=== PATIENT | female | born 1955 | race Caucasian/White ===

== ENCOUNTER 2019-09-11 11:34 | Emergency (ER) | payer OTHER, SELFPAY ==
--- NOTE | ~2019-09-11 | XR_ITS ---
EXAMINATION: XR hand LT min 3V EXAM DATE: 09/11/2019 12:18 INDICATION: Initial encounter following injury, with pain of the left hand. Injury 10 days ago with persistent pain. TECHNIQUE: Left hand frontal, lateral and oblique projections obtained and reviewed. There is no silviano or study for comparison. FINDINGS: Left metacarpal bones are unremarkable. There are no acute fractures or dislocations ident ified. There is no subcutaneous gas. The soft tissue is unremarkable. Carpal surgical changes. IMPRESSION: No acute osseous findings. Reviewed, dictated and finalized at location B. OR [employer] IMPRESSION: No acute osseous findings.
[2019-09-11 11:49] VITALS: BP 143/92; PULSE 78; RESP 16; TEMP 36.6; O2SAT 100
--- NOTE | 2019-09-11 11:56 | ED.GENADULT ---
HPI - General Adult General Chief complaint: Extremity Injury, Upper Stated complaint: Left Hand Injury Time Seen by Provider: 09/11/19 11:56 Source: patient and RN notes reviewed Mode of arrival: ambulatory Limitations: no limitations History of Present Illness HPI narrative: 64-year-old female presents with left dorsal hand pain and swelling for 10 days. Heather says she fell on 09/01/19 after missing a step with a tray in her hand causing pain to LT hand. Sought treatment in [place] after fall occurred at an Urgent Care received a splint to LT hand and discharge instructions concerning RICE per Heather. She says she has been using with little relief. No radiation of pain. No loss of mobility. Exacerbating factors consist of movement and palpation. The relieving factors is immobility. Dominant hand is the RIGHT HAND. No suspected abuse. Heather is postmenopausal. Some parts of this dictation were generated by voice recognition software and may contain typographical and/or grammatical inaccuracies. Related Data Home Medications Medication Instructions Recorded Confirmed Vitamins 09/11/19 carvedilol 09/11/19 triamterene-hydrochlorothiazid tablet 09/11/19 Allergies Allergy/AdvReac Type Severity Reaction Status Date / Time No Known Allergies Allergy Unknown Unverified 03/11/19 19:18 Review of Systems Review of Systems: Narrative: CONSTITUTIONAL: Denies fever, chills, sweats. EYES: Denies visual changes, redness, discharge. ENT: Denies rhinorrhea, congestion, sore throat, otalgia. CARDIOVASCULAR: Denies chest pain, palpitations, edema. RESPIRATORY: Denies dyspnea, wheezing, cough. GASTROINTESTINAL: Denies abdominal pain, nausea, vomiting, diarrhea. GENITOURINARY: Denies dysuria, hematuria, abnormal discharge. SKIN: Denies rash or itching. MUSCULOSKELETAL: Denies acute back pain or myalgia. Complains of Left dorsal hand swelling and pain. NEUROLOGIC: Denies numbness or focal weakness. PSYCHIATRIC: Denies anxiety or depression. All other systems reviewed and negative. [facility] Past Medical History Medical History (Updated 09/12/19 @ 00:00 by Logan Friend) Acid reflux disease with ulcer Carpal tunnel syndrome of left wrist Hypertension Surgical History Surgical History (Updated 09/11/19 @ 12:10 by ARIA Guillory) History of adenoidectomy History of carpal tunnel surgery of left wrist joint repair of LT thumb History of hysterectomy History of Benjie fundoplication History of tonsillectomy Family History Family History (Updated 09/11/19 @ 12:11 by ARIA Guillory) Mother Diabetes mellitus Hypertension Social History Social History (Updated 09/11/19 @ 12:11 by ARIA Guillory) Smoking status: Never smoker Second hand tobacco smoke exposure: No Alcohol intake: current Alcohol use details: Occasionally Substance use: never Living arrangements: with family Occupation/Education: retired Gender identity (if verbalized by the patient): Female Comments At time of signature, agree with nurse past medical, surgical, social, and family history. There is no relevant family history pertinent to the presenting complaint. Exam Narrative: Exam Narrative: GENERAL: This is a well-nourished, well-developed patient, in no apparent distress. HEAD: normocephalic, atraumatic. EYES: PERRL. Sclera clear/white. Vision is grossly intact. NECK: Neck supple, non-tender without lymphadenopathy, masses or thyromegaly. CARDIOVASCULAR: Regular rate and rhythm without murmurs, gallops, or rubs. RESPIRATORY: Clear to auscultation. Breath sounds equal bilaterally. No wheezes, rales, or rhonchi. GASTROINTESTINAL: Abdomen soft, non-tender, nondistended. Bowel sounds are active. No hepato-splenomegaly, or palpable masses. No guarding. SKIN: warm, intact with no suspicious lesions or rash, good texture and turgor. NEURO: awake, alert, and oriented to
== END 2019-09-11 12:38 | disposition home or self-care (01) ==
PROVIDERS: Emergency Provider Nurse Practitioner Family
DX: S63.92XA Sprain of unspecified part of left wrist and hand, initial encounter (principal); X58.XXXA Exposure to other specified factors, initial encounter; K21.9 Gastro-esophageal reflux disease without esophagitis; I10 Essential (primary) hypertension
CPT/HCPCS: 73130; 99213; G0463

== ENCOUNTER 2025-06-26 11:00 | Emergency (ER) | payer OTHER, SELFPAY ==
--- NOTE | ~2025-06-26 | XR_ITS ---
EXAMINATION: XR hand LT min 3V, 06/26/2025 11:50 ORACLE MANAGER HISTORY: Cut to dorsal aspect of palm, base of forth finger COMPARISON: No comparisons available. Findings: No acute fracture or malalignment. Sequelae of previous surgery noted in the first metacarpal carpal joint with moderate degenerative changes noted. Soft tissues unremarkable. Impression: No acute fracture or malalignment. Reviewed, dictated and finalized at location P. LE MANAGER Impression: No acute fracture or malalignment.
[2025-06-26 11:02] VITALS: BP 185/91; PULSE 83; RESP 18; TEMP 36.3; O2SAT 98
--- OUTSIDE RECORDS SUMMARY | 2025-06-26 11:44 | XMS_ITS | Clinical Summary ---
Author Organization [facility] Address [address] [place] [address] Care Team Providers Care Buffet Attendant Name Role Phone Casey Rodrigues MD Primary Care Provider + Rogelio Garcia MD Unavailable Cam Carmen MD Unavailable [phone] Oneida Cobos NP Unavailable [phone] Dominique Mcnamara PhD Unavailable [phone] Herson Howell MD Unavailable Padmaja Juarez MD Unavailable [phone] Lili Fortune MD Unavailable Allergies Active Allergy Reactions Criticality Noted Date Comments Adhesive Itching,Swelling,Re dness High 02/23/2022 surgical glue Adhesive Tape-Silicones Rash High 03/29/2022 Per patient -- had severe reaction to Dermabond Amlodipine Edema,Swelling Medium 06/30/2020 Chlorhexidine Rash High 03/29/2022 Severe rash after parathyroid surgery Egg Stomach upset Low 02/09/2022 Duck Eggs Egg Derived Stomach upset Low 02/09/2022 Duck Eggs Losartan Headache Low 08/19/2020 Tissue Adhesive Rash High 03/29/2022 Per patient -- had severe reaction to Dermabond Medications cholecalciferol (VITAMIN D-3) 5,000 unit tabletIndications:P revention of Vitamin D Deficiency Take 1 tablet (5,000 Units total) by mouth nightly Active ondansetron (Zofran) 4 mg tabletIndications:I rritable bowel syndrome, unspecified type,Gastroesophage al reflux disease with esophagitis, unspecified whether hemorrhage Take 1 tablet (4 mg total) by mouth every 8 (eight) hours as needed for nausea or vomiting 60 tablet 3 09/14/19 23 Active hyoscyamine (LEVSIN) 0.125 mg tabletIndications:I rritable bowel syndrome, unspecified type,Gastroesophage al reflux disease with esophagitis, unspecified whether hemorrhage TAKE 1 TABLET(0.125 MG) BY MOUTH EVERY 6 HOURS NEEDED FOR CRAMPING OR DIARRHEA 90 tablet 5 09/14/19 23 Active magnesium gluconate (MAGONATE) 500 mg (27 mg elemental) tabletIndications:h ypomagnesemia 1 tablet (500 mg total) nightly Active docusate sodium (COLACE) 100 mg capsuleIndications: constipation Take 1 capsule (100 mg total) by mouth 2 (two) times a day as needed for constipation Active ascorbic acid (vitamin C) 1,000 mg tablet Take 1 tablet (1,000 mg total) by mouth daily Active estradioL (Estrace) 0.01 % (0.1 mg/gram) vaginal creamIndications:Va ginal atrophy Insert one gram vaginally 2 times per week (such as Monday/ ) 42.5 g 1 12/14/19 24 Active lisinopriL (PRINIVIL,ZESTRIL) 40 mg tabletIndications:P rimary hypertension TAKE 1 TABLET(40 MG) BY MOUTH EVERY NIGHT 90 tablet 3 11/19/[address] (PROTONIX) 40 mg EC tabletIndications:S ymptomatic Gastroesophageal Reflux Disease Take 1 tablet (40 mg total) by mouth daily 90 tablet 3 03/07/20 25 026 Active hydroCHLOROthiazide 12.5 mg tablet TAKE 1 TABLET(12.5 MG) BY MOUTH DAILY 90 tablet 2 04/04/20 25 Active famotidine (PEPCID) 20 mg tablet Take 1 tablet (20 mg total) by mouth 2 (two) times a day as needed for heartburn 025 Disconti nued(Ot er) Active Problems Problem Noted Date Diagnosed Date Paraesophageal hernia with obstruction but no ga ngrene 04/21/2025 Hiatal hernia 03/12/2025 Lung nodules 03/12/2025 Hyperglycemia 03/12/2025 PLMD (periodic limb movement disorder) Aortic atherosclerosis 03/12/2025 Class 1 obesity due to exces s calories with serious comorbidity and body mass index (BMI) of 32.0 to 32.9 in adult 02/13/2025 Cervical disc disorder with radiculopathy 2024 Assessment & Plan (10/31/2024 12:22 PM CDT): Progressive & refractory on chronic cervical radiculopathy since early 20s Prior reported moderate to severe C-spine DDDx per 2010 & 2013 imaging (per documentation w/o available imaging) Update x-ray today with low threshold to proceed with MRI if warranted Arrange for formal PT towards cervical traction yielding some possible benefit in refractory sxs, secondary cervical/trap strain Optimized supportives mgmt, limited ability w/ NSAIDs given hx fundoplication GIB risk Discussed tx options including gabapentin trial (declined), amenable to trial cyclobenzapine QHS prn, lidocaine patches w/ APAP & conservative therapies Referrals to PMR & pain mgmgt (whomever able accommodate sooner) discuss injections Interim update in 1-2 months or w/ progressive sxs Other osteoporosis without current pathological fracture 09/14/2023 Urinary frequency 06/01/2023 Assessment & Plan (06/01/2023 12:56 PM CDT): -She is adequately emptying her bladder on PVR check today. -Management options were discussed for urgency and frequency including expectant management, conservative management (pelvic floor physical therapy and behavioral modification, medical management, and surgical management (Interstim sacral neuromodulation, intravesicular botulinum toxin injection). -Urine culture is being sent today to rule out a UTI as a possible cause of her symptoms. -I reviewed the behavior modification recommendation; handout provided -Also discussed that her vaginal atrophy may be contributing to her urinary symptoms (see below). -Night time urinary symptoms can be improved with decreasing fluid intake 2-3 hours prior to bedtime and by elevating legs during the afternoon for improved diuresis prior to sleep. Night time urinary symptoms are also often associated with sleep disorders, including sleep apnea. -Her pelvic floor dysfunction likely plays a role in her symptoms, and will be addressed with pelvic floor PT -She is not interested in medications at this time. -if symptoms not significantly improved at follow up I would recommend urodynamics Pelvic floor dysfunction in female 05/31/2023 Assessment & Plan (06/01/2023 12:55 PM CDT): On examination, we elicited Mild pain to palpation of the pelvic floor muscles. Patient was also found to have pelvic floor muscle incoordination and pelvic floor weakness. We discussed the role that her pelvic floor muscle dysfunction is likely playing in her urinary symptoms and bowel symptoms. Management options for levator ani/obturator pain/spasm were discussed including pelvic floor physical therapy. A prescription for PFPT was given. Hallux valgus of left foot 09/09/2022 Overview (09/09/2022): Added automatically from request for surgery [id number] Onychocryptosis 09/09/2022 Overview (09/09/2022): Added automatically from request for surgery [id number] Leg mass, left 09/28/2021 Multiple nevi 04/22/2021 Headache 08/19/2020 Vertigo 08/19/2020 Rectal bleeding 01/06/2019 Shingles 01/06/2019 Polycythemia 10/30/2017 Overview (11/05/2018): seen by heme 10/15. low dose asa recommended. 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 planned therapeutic phlebotomy as needed Abnormal electrocardiography 03/28/2017 Overview (11/05/2018): 03/16 - nsr, q waves in leads iii/avf, ?old inf mi. stress echo 04/16 - small lv cavity with hyperdynamic lvf, dd, mild tr, no ischemia Obstructive sleep apnea syndrome 03/27/2017 Ventricular premature beats 03/27/2017 Incomplete emptying of bladder 12/22/2016 Fibromyalgia 12/13/2016 Hemorrhoids 12/13/2016 Irritable bowel syndrome wit h both constipation and diarrhea 12/13/2016 Insomnia 11/24/2014 Assessment & Plan (03/25/2024 12:55 PM CDT): Did not like grogginess in the morning after taking trazodone She is happy with sleep at this time Will follow-up if this becomes an issue Dyslipidemia 11/20/2014 Gastroesophageal reflux disease with esophagitis 11/20/2014 Assessment & Plan (03/25/2024 12:57 PM CDT): Recent EGD noting hiatal hernia Making dietary changes and using famotidine as needed for management We will follow-up with GI if symptoms persist Idiopathic peripheral neuropathy 07/03/2014 Overview (11/05/2018): Peripheral neuropathy Erosive esophagitis 07/03/2013 Overview (11/03/2016): Esophagitis, erosive Hypertension 11/14/2012 Overview (11/04/2016): Hypertension Assessment & Plan (03/25/2024 12:55 PM CDT): Hypertensive in office today Daily decongestants for cold symptoms for the last week Encouraged to stop decongestants and monitor BP at home for 2 weeks and send log via my chart for review. Will determine adjustment to antihypertensives if necessary at that time. Vitamin D deficiency 11/14/2012 Overview (11/04/2016): Vitamin d deficiency Resolved Problems Problem Noted Date Diagnosed Date Resolved Date COVID 08/23/2021 02/13/2025 Overweight 04/22/2021 02/13/2025 Hyperparathyroidism 06/30/2020 09/14/19 24 Nausea 01/08/2019 03/19/2019 Overview (01/08/2019): Patient feels it is related to prior hieu fundiplication Cervicalgia 01/06/2019 02/13/2025 Overview (10/31/2024): Cervicalgia (723.1); C-spine MRI 8/11, X-ray 12/11 -Mod-Severe DDD/OA Encounters Date Type Department Care Team Description 06/16/2025 3:30 PM CUSTOMER SERVICE CASHIER Office Visit [facility] Medicine Surgery [address] [place] [phone] Jose Stevens MD Paraesophageal hernia with obstruction but no gangrene (Primary Dx) 06/09/2025 9:20 AM CUSTOMER SERVICE CASHIER Office Visit [facility] Endocrinology Metabolism and Lipid [address] [place] [address] Lili Fortune MD Primary hypertension (Primary Dx); Hyperparathyroidism; Age related osteoporosis, unspecified pathological fracture presence; Polycythemia; Vitamin D deficiency 05/15/2025 12:18 PM CDT - 05/15/2025 11:59 PM CDT Hospital Encounter [facility] [address] [place] [phone] Heartburn; Gastroesophageal reflux disease with esophagitis, unspecified whether hemorrhage; Paraesophageal hernia with obstruction but no gangrene Discharge Disposition: Discharge to home or self care 05/12/2025 8:29 AM CDT - 05/12/2025 11:59 PM CDT Hospital Encounter [facility] [address] [place] [address] [phone] Discharge Disposition: Discharge to home or self care 05/12/2025 8:28 AM CDT - 05/12/2025 11:59 PM CDT Hospital Encounter [facility] [address] [place] [address] [phone] Discharge Disposition: Discharge to home or self care 05/12/2025 8:28 AM CDT - 05/12/2025 11:59 PM CDT Hospital Encounter [facility] [address] [place] [address] [phone] Discharge Disposition: Discharge to home or self care 05/12/2025 8:28 AM CDT - 05/12/2025 11:59 PM CDT Hospital Encounter [facility] [address] [place] [phone] Heartburn; Gastroesophageal reflux disease with esophagitis, unspecified whether hemorrhage; Paraesophageal hernia with obstruction but no gangrene Discharge Disposition: Discharge to home or self care 05/09/2025 Results Follow-Up [facility] Endocrinology Metabolism and Lipid [address] [facility] [address] [facility] [address] [place] [address] [place] [address] Lili Fortune MD Dexa TBS Axial Skeleton Bone Density 1 or more sites 05/08/2025 1:10 PM CDT Clinical Support [facility] Bone Health [address] [facility] [address] [place] [address] Osteopenia of multiple sites (Primary Dx); Age related osteoporosis, unspecified pathological fracture presence; Post-menopausal 04/24/2025 Orders Only [facility] Surgery [address] [phone] Jose Stevens MD Heartburn (Primary Dx); Gastroesophageal reflux disease with esophagitis, unspecified whether hemorrhage; Paraesophageal hernia with obstruction but no gangrene 04/22/2025 Orders Only [address] [place] [address] Casey Rodrigues MD Paraesophageal hernia (Primary Dx) 04/21/2025 1:00 PM CDT Office Visit [facility] Surgery [address] [phone] Jose Stevens MD Gastroesophageal reflux disease with esophagitis, unspecified whether hemorrhage (Primary Dx); Paraesophageal hernia with obstruction but no gangrene 04/17/2025 Orders Only [facility] Endocrinology Metabolism and Lipid [address] [facility] [address] [place] [address] [place] [address] Kameron Velazco RN Age related osteoporosis, unspecified pathological fracture presence (Primary Dx) 04/15/2025 2:30 PM CDT Office Visit [facility] Dermatology [address] [place] [phone] Jess Mosher MD PhD Multiple benign nevi (Primary Dx); Seborrheic keratosis; Murray angioma; Actinic keratosis 04/09/2025 Documentation [facility] Medicine Scheduling [address] [place] [address] Jesika Sandoval B.A. [facility] IM DOC 04/05/2025 Orders Only [facility] Endocrinology Metabolism and Lipid [address] [facility] 13th [place] [address] [place] [phone] Lili Fortune MD from Last 3 Months Immunizations Immunization Administration Dates Next Due Influenza, Quadrivalent, Spl it, Intramuscular 04/25/2019 Influenza, Split 07/03/2013 Influenza, Trivalent, IM (MDV) 07/03/2013,2011 Influenza, Trivalent, Split, Preservative Free, Intradermal 05/03/2017,06/18/2015 Influenza, Unspecified 04/25/2019,2016,06/18/2015,07/03,03/31/2012 [employer] ([employer] SARS-CoV-2 Vaccination 10/06/2020, 09/28/2020 MMR 11/02/2015 Tdap 07/31/2015,12/31/2012 ZOSTER LIVE 07/13/2015 Surgical History Surgery Date Site/Laterality Comments OTHER SURGICAL HISTORY 07/31/2010 - 07/30/2011 L ulnar nerve release and carpal tunnel release and left thumb joint repair OTHER SURGICAL HISTORY 07/31/2012 - 07/30/2013 gerd: fundoplication hiatal hernia repair COLONOSCOPY 2019 RECTOCELE REPAIR 07/31/1992 - 07/30/1993 VAGINAL HYSTERECTOMY 07/31/1992 - 07/30/1993 Hysterectomy PARATHYROIDECTOMY 03/09/2022 Left HIEU FUNDOPLICATION FOOT SURGERY HERNIA REPAIR DILATION AND CURETTAGE OF UTERUS 1976 CYSTOCELE REPAIR 1992 ABDOMINAL SURGERY Medical History Medical History Date Comments Uterine prolapse 1992 prolapsed uteru s Hx Other Medical shingles age 16 and again in her 40s Gastroesophageal reflux disease gerd; Outcome: improved Lesion of ulnar nerve Cubital tu nnel syndrome - (Added by TW Conv) Personal history of other di seases of the nervous system and sense organs History of carpal tunnel syndrome - (Added by TW Conv) Medial epicondylitis of elbow Me dial epicondylitis - (Added by TW Conv) Cervicalgia Cervicalgia - C- spine MRI 03/10, X-ray 12/11 -Mod-Severe DDD/OA (Added by TW Conv) Cervicalgia Neck pain - (Add ed by TW Conv) Personal history of other sp ecified conditions History of vertigo - MRI 09/28 1 - Nl. 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 (Added by TW Conv) Personal history of transien t ischemic attack (TIA), and cerebral infarction without residual deficits History of transient cerebra l ischemia - Possible TIA 11/08. Echo - nl LVF. Holter - rare APDs, frequent VPDs. Carotid dopplers negative. (Added by TW Conv) Other specified postprocedural states H/O colonoscopy - 04/10 - mild tics/internal roids. No polyps. (Added by TW Conv) Personal history of other in fectious and parasitic diseases History of herpes zoster - ( Added by TW Conv) Personal history of other di seases of the female genital tract History of uterine prolapse - (Added by TW Conv) Primary localized osteoarthrosis, hand Localized Primary Osteoarthritis Of The Carpometacarpal Joint Of The Left Thumb - Dr. Pires (Added by TW Conv) Personal history of other di seases of the digestive system History of hiatal hernia - B jocelyne richardson 06/12 - mod HH with GERD. Esophageal dysmotility. (Added by TW Conv) Dyskinesia of esophagus Esophage al dysmotility - 06/12 study - spastic dz c/w esophageal visceral hypersensitivity (Added by TW Conv) Encounter for screening for other viral diseases Need for hepatitis C screeni ng test - (Added by TW Conv) Melena Blood in stool - (Added by TW Conv) Disease of intestine Bowel troub le - (Added by TW Conv) Pain in hip Hip pain - x-ray right 12/14 neg (Added by TW Conv) Personal history of other di seases of the respiratory system History of sinusitis - (Adde d by TW Conv) Blood in stool Constipation Rectal bleeding Rectal pain Hypertension Abnormal Pap smear of cervix Fibromyalgia, primary Fractures GI problem Thyroid disease Vertigo PONV (postoperative nausea and vomiting) Peptic ulceration Cervical disc disorder Family History Medical History Relation Name Comments Sleep apnea Brother Obstructive sle ep apnea - (Added by TW Conv) Breast cancer Father's Sister Allergies Mother Mom Allergies; Asthma Mother Mom Asthma; /Family history of asthma - (Added by TW Conv) Coronary artery disease Mother Mom Dede nary artery disease; /Family history of coronary artery disease - (Added by TW Conv) Depression Mother Mom Depression; /Fa sin history of depression - (Added by TW Conv) Diabetes Mother Mom Diabetes mellit us; /Family history of diabetes mellitus - (Added by TW Conv) Dyslipidemia Mother Mom Dyslipidemia - (Added by TW Conv) Hyperlipidemia Mother Mom Hyperlipidemi a; Hypertension Mother Mom Hypertension; Neuropathy Mother Mom Hyperlipidemia Other 1 Family histor y of Hyperlipidemia; Dyslipidemia Other 3 Dyslipidemia - (Added by TW Conv) Colon cancer Other 4 cousin Kidney disease Other 4 cousin Family histor y of kidney disease - mother. mother required indwelling catheter for urinary retention. father on hd (Added by TW Conv) Diabetes Sister Hyperlipidemia Sister Sleep apnea Sister Obstructive sle ep apnea - (Added by TW Conv) Anesthesia problems Neg Hx Relation Name Status Comments Brother Father Father Father's Sister Mother Mom (Age 78) Other 1 Other 2 Other 3 Other 4 cousin Sister Social History Tobacco Use Types Packs/Day Years Used Date Smoking Tobacco: Never Passive Smoke Exposure: Never Smokeless Tobacco: Never Tobacco Cessation:Counseling Given: No Alcohol Use Standard Drinks/Week Comments Yes 0 (1 standard drink = 0.6 oz pur e alcohol) rehana AUDIT-C Answer Date Recorded Q1: How often do you have a drink containing alcohol? Never 11/16/2022 Q2: How many drinks containi ng alcohol do you have on a typical day when you are drinking? Patient does not drink Q3: How often do you have si x or more drinks on one occasion? Never 11/16/2022 PHQ-2 Answer Date Recorded PHQ-2 Total Score (If total score is 3 or more points, staff should administer the PHQ-9) 0 02/12/2025 Personal Safety Answer Date Recorded Have you ever been in or are you currently in a harmful physical or emotional relationship or is someone making you feel afraid or unsafe? Denies 11/16/2022 Comments No Sex and Gender Information Value Date Recorded Sex Assigned at Not on file Legal Sex Female 1:44 AM CUSTOMER SERVICE CASHIER Gender Identity Not on file Sexual Orientation Not on file Obstetrics History Para Term AB IAB SAB Ectopic Multiple Livin g Live Births 4 3 3 0 1 1 3 3 Date Outcome GA Total Labor Labor/2nd/3rd Weight Sex Type Anes PTL Saima A1 A5 Name Clin 1975 Term Vaginal Living 1976 SAB 1977 Term Vaginal Living 1979 Term Vaginal Living Last Filed Vital Signs Vital Sign Reading Time Taken Comments Blood Pressure 179/103 06/16/2025 3:20 PM CUSTOMER SERVICE CASHIER Pulse 70 06/16/2025 3:20 PM CUSTOMER SERVICE CASHIER Temperature 36.6 C (97.8 F) 06/16/2025 3:20 PM CUSTOMER SERVICE CASHIER Respiratory Rate 16 04/21/2025 1:14 PM CDT Oxygen Saturation 96% 03/12/2025 3:00 PM CDT Inhaled Oxygen Concentration - - Weight 97.8 kg (215 lb 9.6 oz) 06/16/2025 3:20 P M CUSTOMER SERVICE CASHIER Height 170.2 cm (5' 7) 06/16/2025 3:20 PM CUSTOMER SERVICE CASHIER Body Mass Index 33.77 06/16/2025 3:20 PM CUSTOMER SERVICE CASHIER Plan of Treatment Health Maintenance Due Date Last Done Comments Pneumococcal vaccine 65+ (1 of 1 - PCV) 2005 Covid-19 Vaccine (3 - 2024-2 6 season) 2025 10/06/2020, 09/28/2020 Influenza Vaccine (#1) 2025 9, 04/25/2019, 05/03/2017, Additional history exists DTaP/Tdap/Td Vaccine (3 - Td or Tdap) 07/31/2025 07/31/2015, 12/31/2012 Breast Cancer Screening-Mammogram 12/12/2025 12/12/2024, 11/10/2023, 10/19/2022, Additional history exists Depression Screening 02/13/2026 02/13/2025, 09/15/2023, 09/14/2022, Additional history exists Fall Risk Assessment 02/13/2026 02/13/2025, 09/15/2023, 11/16/2022, Additional history exists Well Visit 65+ 02/13/2026 02/13/2025, 01/28, 09/15/2023, Additional history exists Osteoporosis Screening-Bone Density Scan 05/08/2027 05/08/2025, 05/07/2024, 05/16/2023, Additional history exists Colon Cancer Screening-Colonoscopy 01/22/2029 01/22/2019, 03/31/2011 Zoster Vaccine Discontinued 07/13/2015 Hepatitis C Screening Completed 12/13/2016, 014 Colon Cancer Screening-CT Colonography Discontinued 01/22/2019, 03/31/2011 Colon Cancer Screening-DNA Stool Discontinued 01/23/20 19, 03/31/2011 Colon Cancer Screening-FIT Discontinued 01/22/2019, Colon Cancer Screening-Sigmoidoscopy Discontinued 01/22/2019, 03/31/2011 Hepatitis B Screening Completed 03/12/2025 Goals Goal Patient Goal Type Associated Problems Recent Progress Patient-Stated? Author CCM Chronic Pain Care Plan Chronic Care Management Tracey Schumacher, RN Note: Problem: Chronic Pain Goals: 1. Minimize further functional decline 2. Maximize quality of life 3. Control pain Strategies: - Activity/exercise program recommendation - Conservative stepwise pain medicine strategy with multi-disciplinary approach - Recommend healthy lifestyle strategies and compensatory methods as needed Medical Devices Implanted Type Area Structural Manager Device Identifier Shelf Expiration Date Model / Serial / Lot [employer] Asnis 3mm 18mm 5mm Self Cut Cannulated Color Coded Low Profile [id number] - [id number] Implanted:Qty: 1 on 11/16/2022 by Kaykay Mcdonald DPM at [facility] [employer] [id number] / / [employer] Asnis Od3 Mm L19 Mm L5 Mm Self Cut Cannulated Color Coded Low Profile Head Foot Hand Micro Reverse Cut Flute Screw Bone Titanium Nonsterile [id number] - [id number] Implanted:Qty: 1 on 11/16/2022 by Kaykay Mcdonald DPM at [facility] [employer] [id number] / / Procedures Procedure Name Priority Date/Time Associated Diagnosis Comments CT CHEST ABDOMEN PELVIS W CONTRAST Schedule Routine, Read Routine (OP Routine) 05/15/2025 1:46 PM CDT Heartburn Gastroesophageal reflux disease with esophagitis, unspecified whether hemorrhage Paraesophageal hernia with obstruction but no gangrene NM GASTRIC EMPTYING STUDY Schedule Routine, Read Routine (OP Routine) 05/12/2025 10:53 AM CDT Heartburn Gastroesophageal reflux disease with esophagitis, unspecified whether hemorrhage Paraesophageal hernia with obstruction but no gangrene DEXA TBS AXIAL SKELETON BONE DENSITY 1 OR MORE SITES Schedule Routine, Read Routine (OP Routine) 05/08/2025 1:59 PM CDT Age related osteoporosis, unspecified pathological fracture presence SCREENING MAMMOGRAM BILATERAL W JAG Schedule Routine, Read Routine (OP Routine) 12/12/2024 1:47 PM CDT Screening mammogram, encounter for COLONOSCOPY 01/22/2019 9:21 AM CDT HEPATITIS C ANTIBODY Routine Gen Lab 12/13/2016 11:39 AM CDT from Last 3 Months or Most Recently Relevant to Health Maintenance Results * CT Chest Abdomen Pelvis W Contrast (05/15/2025 1:46 PM CDT) Anatomical Region Laterality Modality Body N/A Computed Tomogra phy 05/15/2025 2:20 PM CDT Impressions 05/15/2025 2:[address] chest impression: 1. Moderate-sized hiatal hernia. 2. Patchy lower lobe opacities likely inflammatory/infectious. Clinical correlation and follow-up recommended. 3. Additional details above.. CT abdomen and pelvis: Comparison CT images 09/23/2022. There is a moderate hiatal hernia.. There is no acute fracture or acute bone destruction. Spleen upper limit normal in size.. The left kidney appears normal. The left adrenal gland appears normal. The right kidney appears normal. Nodular right adrenal gland similar to prior study.. There is no evidence of pancreatitis or significant pancreatic mass. Moderate diffuse hepatic steatosis. No focal concerning liver lesions appreciated. Decompressed gallbladder. No sign of gastric outlet obstruction. Contrast extends into the jejunum and ileum.. There is no evidence of abdominal aortic aneurysm. There is no abnormal adenopathy seen. There is no significant ascites. There is no evidence of bowel obstruction. There is no significant abnormal bowel wall thickening. The urinary bladder appears normal. There is colonic diverticulosis without evidence of diverticulitis. There is no evidence of appendicitis. CT abdomen and pelvis impression: 1. No acute inflammatory changes. 2. Moderate hiatal hernia. 3. No evidence of gastric outlet obstruction. 4. Moderate hepatic steatosis. 5. Additional details above.. Electronically signed by: Otis Bethea M.D. Narrative 05/15/2025 2:[address] chest abdomen and pelvis with contrast HISTORY: Gastroesophageal reflux. Hiatal hernia.. TECHNIQUE: CT chest, abdomen, and pelvis was done with contrast 95 mL Optiray 350 intravenously. Patient received oral contrast also. FINDINGS: CT CHEST: No prior studies for correlation. Although not performed according to pulmonary embolus protocol, there are no definite central pulmonary emboli appreciated. There is no definite evidence of aortic aneurysm or dissection. There is no abnormal mediastinal or hilar lymphadenopathy. The size of the heart is normal. There is no acute fracture or acute bone destruction. There is no definite evidence of pulmonary edema. There is no pleural effusion.. There are some patchy lower lobe opacities right greater than left possibly inflammatory/infectious. Clinical correlation and follow-up recommended. 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 There is a moderate hiatal hernia. Procedure Note Otis Bethea MD - 05/15/2025 CT chest abdomen and pelvis with contrast HISTORY: Gastroesophageal reflux. Hiatal hernia.. TECHNIQUE: CT chest, abdomen, and pelvis was done with contrast 95 mL Optiray 350 intravenously. Patient received oral contrast also. FINDINGS: CT CHEST: No prior studies for correlation. Although not performed according to pulmonary embolus protocol, there are no definite central pulmonary emboli appreciated. There is no definite evidence of aortic aneurysm or dissection. There is no abnormal mediastinal or hilar lymphadenopathy. The size of the heart is normal. There is no acute fracture or acute bone destruction. There is no definite evidence of pulmonary edema. There is no pleural effusion.. There are some patchy lower lobe opacities right greater than left possibly inflammatory/infectious. Clinical correlation and follow-up recommended. 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 There is a moderate hiatal hernia. IMPRESSION: CT chest impression: 1. Moderate-sized hiatal hernia. 2. Patchy lower lobe opacities likely inflammatory/infectious. Clinical correlation and follow-up recommended. 3. Additional details above.. CT abdomen and pelvis: Comparison CT images 09/23/2022. There is a moderate hiatal hernia.. There is no acute fracture or acute bone destruction. Spleen upper limit normal in size.. The left kidney appears normal. The left adrenal gland appears normal. The right kidney appears normal. Nodular right adrenal gland similar to prior study.. There is no evidence of pancreatitis or significant pancreatic mass. Moderate diffuse hepatic steatosis. No focal concerning liver lesions appreciated. Decompressed gallbladder. No sign of gastric outlet obstruction. Contrast extends into the jejunum and ileum.. There is no evidence of abdominal aortic aneurysm. There is no abnormal adenopathy seen. There is no significant ascites. There is no evidence of bowel obstruction. There is no significant abnormal bowel wall thickening. The urinary bladder appears normal. There is colonic diverticulosis without evidence of diverticulitis. There is no evidence of appendicitis. CT abdomen and pelvis impression: 1. No acute inflammatory changes. 2. Moderate hiatal hernia. 3. No evidence of gastric outlet obstruction. 4. Moderate hepatic steatosis. 5. Additional details above.. Electronically signed by: Otis Bethea M.D. Jose Stevens MD IMG CT PROCEDURES Billie l Result * Nuclear Medicine gastric emptying (05/12/2025 10:53 AM CDT) Anatomical Region Laterality Modality Body N/A Nuclear Medicine 05/12/2025 11:0 0 AM CDT Impressions 05/12/2025 11:00 AM CDT Rapid gastric emptying with 9% of the meal remaining at 2 hours.. Electronically signed by: Eleuterio Vásquez M.D. Narrative 05/12/2025 11:00 AM CDT EXAM: NM GASTRIC EMPTYING STUDY CLINICAL HISTORY: Recurrent gastroesophageal reflux. Prior hiatal hernia repair. FINDINGS: The patient ingested a test meal containing 1.0 mCi of technetium 99m sulfur colloid. Anterior and posterior images of the abdomen were obtained immediately and following 1 and 2 hour delays. The decay corrected geometric mean of gastric activity was determined and plotted against a normal database. Gastric emptying is rapid. At one hour, 40% of the test meal remains in the stomach with a normal range of 37% through 90% and a mean of 64%. At 2 hours, 9% remains with a normal range of 30% through 60% and a mean of 45%. The study was completed at 2 hours. Procedure Note Eleuterio Vásquez MD - 05/12/2025 EXAM: NM GASTRIC EMPTYING STUDY CLINICAL HISTORY: Recurrent gastroesophageal reflux. Prior hiatal hernia repair. FINDINGS: The patient ingested a test meal containing 1.0 mCi of technetium 99m sulfur colloid. Anterior and posterior images of the abdomen were obtained immediately and following 1 and 2 hour delays. The decay corrected geometric mean of gastric activity was determined and plotted against a normal database. Gastric emptying is rapid. At one hour, 40% of the test meal remains in the stomach with a normal range of 37% through 90% and a mean of 64%. At 2 hours, 9% remains with a normal range of 30% through 60% and a mean of 45%. The study was completed at 2 hours. IMPRESSION: Rapid gastric emptying with 9% of the meal remaining at 2 hours.. Electronically signed by: Eleuterio Vásquez M.D. Jose Stevens MD [facility] [place] PROCEDURES Billie l Result * Dexa TBS Axial Skeleton Bone Density 1 or more sites (05/08/2025 1:59 PM CDT) Anatomical Region Laterality Modality Wrist, Body N/A Radiographic Kari ging Narrative 05/08/2025 6:14 PM CDT Patient Name: Heather Machuca Date of : 1955 Date of scan: 05/08/2025 Bone mineral density was performed on a HoloZeus[employer] Discovery Densitometer. Based on machine cross-calibration and precision studies the least significant changes of this densitometer is 0.024 g/cm2 at the spine, 0.020 g/cm2 at the total proximal femur, and 0.014g/cm2 at the forearm. HISTORY: This is a 69 y.o. postmenopausal female with a history of hyperparathyroidism, osteoporosis, and vitamin D deficiency. She reports that she has never smoked. She has never been exposed to tobacco smoke. She has never used smokeless tobacco. Currently on treatment with vitamin D and diuretics, previously treated with hormone replacement therapy, and current complaint of neck pain. INDICATIONS: Menopause status, vitamin D deficiency, and history of osteoporosis. FINDINGS: BONE MINERAL DENSITY OF THE LUMBAR SPINE Bone Mineral Density (BMD) of the lumbar spine was measured from L1-L4 and the average density was calculated to be 1.160 gm/cm2. This corresponds to a T-score (standard deviations from the mean of young adults) of 1.0. When compared to the previous study of 05/07/2024 there has been a 0.035 gm/cm (3.2%) increase in bone density that is considered significant. BONE MINERAL DENSITY OF THE PROXIMAL FEMUR Bone Mineral Density (BMD) of the left hip total was found to be 0.944 gm/cm2. This corresponds to a T-score standard deviations from the mean of young adults of 0.0. Femoral neck is 0.690 gm/cm2 with a T-score (standard deviations from the mean of young adults) of -1.4. When compared to the previous study of 05/07/2024 there has been a 0.025 gm/cm (2.7%) increase in bone density that is considered significant. BONE MINERAL DENSITY OF THE FOREARM Bone Mineral density (BMD) of the left proximal 1/3 of the radius measures 0.554 gm/cm2. This corresponds to a T-score (standard deviations from the mean of young adults) of -2.3. When compared to the previous study of 05/07/2024 there has been no significant changes in bone density. A forearm bone density study was performed in addition to the routine study due to history of hyperparathyroidism. SUMMARY: Bone mineral density shows evidence of low bone mass at the proximal femur and forearm and moderately increased fracture risk (Osteopenia). There has been a significant increase in bone density since previous measurement. ADDITIONAL COMMENTS: Postmenopausal Women and Men Over 50: Diagnostic criteria: Osteoporosis: BMD at or below -2.5 T-score; Osteopenia (low bone mass): BMD between -1.0 and -2.5 T-score. If the patient has a history of a fragility fracture, a fracture that occurred with trauma equivalent to a fall from a standing position or less, then the diagnosis is osteoporosis regardless of bone density. The history and data sections of the bone mineral density scan were prepared by Dominique Chaney)(Erick)(LAMONT) CBDT who is accredited by the International Society of Clinical Densitometry. The overall patient assessment and scan interpretation were performed by Will Louis M.D. who is certified by the International Society of Clinical Densitometry. [id number] Lili Fortune MD IM DXA PROCEDURES Final R esult * Screening Mammogram Bilateral W Jag (12/12/2024 1:47 PM CDT) Anatomical Region Laterality Modality Breast Bilateral Mammography Narrative 12/13/2024 2:33 PM CDT Mammogram Technique: Bilateral Digital Breast Tomosynthesis, Bilateral C-view 2D Screening mammogram. Views obtained: bilateral craniocaudal and bilateral mediolateral oblique. Computer Aided Detection was performed. Mammogram Findings: The present examination has been compared to prior imaging studies performed at [facility] on 09/21/2021, 10/19/2022 and 11/10/2023. There are scattered areas of fibroglandular density. There is no suspicious abnormality in either breast. Impression: There is no mammographic evidence of malignancy. Annual screening mammography is recommended. OVERALL FINAL ASSESSMENT: BI-RADS CATEGORY 1: Negative. Procedure Note Em Mahmood MD - 12/13/2024 Mammogram Technique: Bilateral Digital Breast Tomosynthesis, Bilateral C-view 2D Screening mammogram. Views obtained: bilateral craniocaudal and bilateral mediolateral oblique. Computer Aided Detection was performed. Mammogram Findings: The present examination has been compared to prior imaging studies performed at [facility] on 09/21/2021, 10/19/2022 and 11/10/2023. There are scattered areas of fibroglandular density. There is no suspicious abnormality in either breast. Impression: There is no mammographic evidence of malignancy. Annual screening mammography is recommended. OVERALL FINAL ASSESSMENT: BI-RADS CATEGORY 1: Negative. us Self Screening Mammogram IMG MAMMO PROCEDURES Fi nal Result * COLONOSCOPY (01/22/2019 9:21 AM CDT) Anatomical Region Laterality Modality Other Narrative Procedure Note Cam Carmen MD - 01/22/2019 9:21 AM CDT ENDOSCOPY LAB Patient Name: Heather Machuca Procedure Date: 01/22/2019 9:21 AM Date of : 1955 Admit Type: Outpatient Age: 63 Gender: Female Attending MD: Cam Carmen M.D. Room: [facility] 01 Note Status: Finalized Procedure: Colonoscopy Indications: Hematochezia Providers: Cam Carmen M.D. Referring MD: Medicines: Propofol per Anesthesia Complications: No immediate complications. Estimated Blood Loss: Estimated blood loss: none. Procedure: Pre-Anesthesia Assessment: - Prior to the procedure, a History and Physical was performed, and patient medications and allergies were reviewed. The patient's tolerance of previousanesthesia was also reviewed. The risks and benefits of theprocedure and the sedation options and risks were discussed withthe patient. All questions were answered, and informedconsent was obtained. Prior Anticoagulants: The patient hastaken no previous anticoagulant or antiplatelet agents. ASA Grade Assessment: I - A normal, healthy patient. After reviewing the risks and benefits, the patient wasdeemed in satisfactory condition to undergo the procedure. The benefits, risks and alternatives of the procedureand sedation were discussed and informed consent wasobtained. All questions were answered. Please refer to the signed informed consent document in the medical record. Thescope was passed under direct vision. The [id number] introduced through the anus and advanced to the cecum, identified by appendiceal orifice and ileocecal valve.The colonoscopy was technically difficult and complex dueto restricted mobility of the colon. Successful completionof the procedure was aided by withdrawing the scope and replacing with the pediatric colonoscope. The patient tolerated the procedure well. The quality of the bowel preparation was good. Findings: Hemorrhoids were found on perianal exam. Scattered small and large-mouthed diverticula were found in thesigmoid colon. There was narrowing of the colon in association with the diverticular opening. Non-bleeding external and internal hemorrhoids were found during retroflexion. The hemorrhoids were large. The exam was otherwise without abnormality. Impression: - Hemorrhoids found on perianal exam. - Moderate diverticulosis in the sigmoid colon. Therewas narrowing of the colon in association with the diverticular opening. - Non-bleeding external and internal hemorrhoids. - The examination was otherwise normal. - No specimens collected. Recommendation: - Use fiber, for example Citrucel, Fibercon, Konsyl or Metamucil. - Repeat colonoscopy in 10 years for screeningpurposes. - Contact my office if interested in excisional hemorrhoidectomy. Cam Carmen MD Cam Carmen M.D. 01/22/2019 10:03:27 AM Number of Addenda: 0 Note Initiated On: 01/22/2019 9:21 AM Cam Carmen MD ENDOSCOPY PROCEDURES Final Result * Hepatitis C antibody (12/13/2016 11:39 AM CDT) Hep C Ab Nonreactive Nonreactive FARHAD HERNANDEZ Comment: Interpretive Data Positive results should be confirmed by a molecular method. If positive, a second separately collected sample should be submitted for Hepatitis C Virus (HCV) RNA Detection and Quantitation by Real-Time Reverse Lead Assembler-PCR (RT-PCR). Current interpretive data was last revised on 2016. Blood specimen (specimen) 12/13/2016 11:39 AM CDT 12/13/2016 12:50 PM CDT us Casey Rodrigues MD LAB MICROBIOLOGY - GENER AL ORDERABLES Edited Result - Final FARHAD SPRAGUE [facility] Department [place] [address] from Last 3 Months or Most Recently Relevant to Health Maintenance Insurance MEDICARE [employer] [facility] CLAIMS [facility] LIFE MEDICARE MEDICARE FOR LIFE Advance Directives For more information, please contact: [phone] * Full Code (Latest Code Status on File) Date Activated Date Inactivated Comments 01/22/2019 8:45 AM 01/22/2019 3:01 PM Care Teams Buffet Attendant Relationship Specialty Start Date End Date Casey Rodrigues MD [address] [place] [address] DR Garza [address] [address] PCP - General 11/09/16 [place] [address] [place] [address] Consulting Physician Gastroenterology 11/05/18 [place] [address] [place] [address] Referring Physician Colon and Rectal Surgery 01/06/19 [place] [address] [place] [address] Nurse Practitioner Nurse Practitioner 01/06/19 [place] [address] [place] [address] Psychologist Psychology 01/06/19 [place] [address] [place] [address] Referring Physician Sleep Medicine 01/06/19 Padmaja Juarez MD [address] [place], [place] [address]ACE [place] [address] [place] [address] Clinic Licensed Practical Nurse Gynecology 01/09/20 Lili Fortune MD [address] [place], [place] [address] [place] [address] Consulting Physician Endocrinology Diabetes & Metabolism 09/23/20
--- OUTSIDE RECORDS SUMMARY | 2025-06-26 11:44 | XMS_ITS | Encounter Summary ---
Author Organization [facility] Address [address] [place] [address] Phone Care Team Providers Care Sales Order Specialist Name Role Phone Casey Rodrigues MD Primary Care Provider + Rogelio Garcia MD Unavailable [phone] Cam Carmen MD Unavailable [phone] Oneida Cobos NP Unavailable [phone] Dominique Mcnamara PhD Unavailable [phone] Herson Howell MD Unavailable Padmaja Juarez MD Unavailable Pooja Sherman DPT Unavailable + Gary Montes MD Unavailable [phone] Lili Fortune MD Unavailable Sangeetha Hodges DPT Unavailable Encounter Details Date Type Department Care Team (Latest Contact Info) Description 05/29/2017 Orders Only [facility] CONVERSION Scanning, Provider Social History Tobacco Use Types Packs/Day Years Used Date Smoking Tobacco: Never Alcohol Use Standard Drinks/Week Comments Yes 0 (1 standard drink = 0.6 oz pur e alcohol) Comments Unknown Sex and Gender Information Value Date Recorded Sex Assigned at Not on file 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 Gender Identity Not on file Sexual Orientation Not on file documented as of this encounter Plan of Treatment Not on file documented as of this encounter Procedures Procedure Name Priority Date/Time Associated Diagnosis Comments OBSTETRIC/GYNECOLOGY ULTRASONOGRAPHY REPORT 05/29/2017 2:07 PM CDT documented in this encounter Results * OBSTETRIC/GYNECOLOGY ULTRASONOGRAPHY REPORT (05/29/2017 2:07 PM CDT) Anatomical Region Laterality Modality Ultrasound us Provider Scanning IMG OB US PROCEDURES Final Res ult documented in this encounter Visit Diagnoses Not on filedocumented in this encounter Care Teams Sales Order Specialist Relationship Specialty Start Date End Date Casey Rodrigues MD [address] [place] [address] DR Garza [address] [address] PCP - General 11/09/16 Rogelio [place] [id number] [place] [address] Consulting Physician Gastroenterology 11/05/18 Cam Carmen MD [address] [place] [address] Referring Physician Colon and Rectal Surgery 01/06/19 Oneida Cobos NP [address] [place] [address] Nurse Practitioner Nurse Practitioner 01/06/19 Dominique Mcnamara, PhD [id number] [place] [address] Psychologist Psychology 01/06/19 [place] [address] [place] [address] Referring Physician Sleep Medicine 01/06/19 Padmaja Juarez MD [facility] [address] [place] [address] Associate Music Professor Gynecology 01/09/20 Pooja Sherman DPT [facility] [address] [place] [address] Physical Therapist Physical Therapy 09/03/20 10/22/20 Gary Montes MD [address] [place] [address] Referring Physician Med 09/23/20 Lili Fortune MD [address] [place] [address] Consulting Physician Endocrinology Diabetes & Metabolism 09/23/20 Sangeetha Hodges DPT [address] [facility] [address] [place] [address] Physical Therapy 09/01/23 12/17/23 documented as of this encounter
--- OUTSIDE RECORDS SUMMARY | 2025-06-26 11:44 | XMS_ITS | Clinical Summary ---
Author Organization [facility] Address Formerly [facility], later [facility] [place] [address] Care Team Providers Care Rehab Trainer Name Role Phone Casey Rodrigues MD Primary Care Provider [phone] Allergies Active Allergy Reactions Criticality Noted Date Comments Amlodipine Swelling Medium 06/30/2020 Chlorhexidine Rash High 03/29/2022 Severe rash after parathyroid surgery Egg Protein-Containing Drug Products GI Upset 02/09/2022 Duck Eggs Losartan Headache Low 08/19/2020 Tape Itching,Redness,Swe lling High 02/23/2022 surgical glue Wound Dressing Adhesive Rash High 03/29/2022 Per patient -- had severe reaction to Dermabond Medications aspirin-acetami nophen-caffeine 250-250-65 MG tablet Take 1 tablet by mouth every 6 (six) hours as needed. Active cholecalciferol 125 MCG (5000 UT) Tab Active diphenhydrAMINE 25 MG capsule Take 25 mg by mouth as needed. Active Docusate Sodium (DSS) 100 MG Cap Take 100 mg by mouth. Active Krill Oil 350 MG Cap 750mg daily Active Lactobacillus Acid-Pectin (ACIDOPHILUS/PE CTIN) capsule Take 1 capsule by mouth daily. Active lisinopril 40 MG tablet Take 1 tablet (40 mg total) by mouth daily. 90 tablet 1 12/10/2021 Active calcium carbonate (OS-JESSIE) 1250 (500 Ca) MG tablet Take 1,250 mg by mouth 3 (three) times daily. 03/09/2022 Active Active Problems Problem Noted Date Diagnosed Date Leg mass, left 09/28/2021 COVID 08/23/2021 Overweight 04/22/2021 Hypercalcemia 08/19/2020 Vertigo 08/19/2020 Osteopenia 08/17/2020 Edema 06/30/2020 Primary hyperparathyroidism 06/30/2020 Cervicalgia 01/06/2019 Rectal bleeding 01/06/2019 Constipation 11/06/2018 Polycythemia 10/30/2017 Overview (10/13/2021): seen by heme 10/15. low dose asa recommended. 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 planned therapeutic phlebotomy as needed Abnormal electrocardiography 03/28/2017 Overview (10/13/2021): 03/16 - nsr, q waves in leads iii/avf, ?old inf mi. stress echo 04/16 - small lv cavity with hyperdynamic lvf, dd, mild tr, no ischemia Ventricular premature beats 03/27/2017 Incomplete emptying of bladder 12/22/2016 Fibromyalgia 12/13/2016 Hemorrhoids 12/13/2016 Irritable bowel syndrome 12/13/2016 History of osteoarthritis 11/24/2014 Insomnia 11/24/2014 Dyslipidemia 11/20/2014 Gastroesophageal reflux disease with esophagitis 11/20/2014 Idiopathic peripheral neuropathy 07/03/2014 Overview (10/13/2021): Peripheral neuropathy Erosive esophagitis 07/03/2013 Overview (10/13/2021): Esophagitis, erosive Hypertension 11/14/2012 Overview (10/13/2021): Hypertension Vitamin D deficiency 11/14/2012 Overview (10/13/2021): Vitamin d deficiency Resolved Problems Problem Noted Date Diagnosed Date Resolved Date Angina pectoris, unspecified 10/13/2021 02/09/2022 Cough 04/22/2021 08/19/2022 Sleep disturbance 04/22/2020 08/19/2022 Herpes zoster 01/06/2019 08/19/2022 Obstructive sleep apnea syndrome 03/27/2017 08/19/2022 Anxiety 12/13/2016 08/19/2022 Encounters Date Type Department Care Team Description 04/04/2025 10:11 AM CDT - 04/04/2025 11:59 PM CDT Hospital Encounter [place] [address] [facility] [place] [address] Jose Kaur MD Discharge Disposition: Home or Self Care (Routine Discharge) 04/04/2025 Travel from Last 3 Months Immunizations Immunization Administration Dates Next Due Influenza (Generic) 05/03/2017, 5,07/03/2013,2011 Influenza Adult (Generic) 04/25/2019 [employer] ([employer]) COVID-19 AD26 VACCINE 0.5 ML IM SUSP 10/06/2020,09/28/2020 MMR (MMRII) 11/02/2015 Tdap (Generic) 07/31/2015,12/31/2012 Zoster (Zostavax) 26947 Unt/0.65Ml 07/13/2015 Family History Medical History Relation Comments Sleep Apnea Brother Asthma Mother Coronary artery disease Mother Depression Mother Diabetes Mother Hyperlipidemia Mother Hypertension Mother urinary retention Mother req catheter Sleep Apnea Sister Relation Status Comments Brother Mother Sister Social History Tobacco Use Types Packs/Day Years Used Date Smoking Tobacco: Never Smokeless Tobacco: Never Comments Unknown Sex and Gender Information Value Date Recorded Sex Assigned at Female 03/14/2025 1:07 PM CDT Legal Sex Female 8:15 PM CDT Gender Identity Not on file Sexual Orientation Not on file Last Filed Vital Signs Vital Sign Reading Time Taken Comments Blood Pressure 151/98 02/25/2025 4:00 PM CDT Pulse 62 02/25/2025 4:00 PM CDT Temperature 36.5 C (97.7 F) 02/25/2025 9:50 AM CDT Respiratory Rate 9 02/25/2025 4:00 PM CDT Oxygen Saturation 96% 02/25/2025 4:00 PM CDT Inhaled Oxygen Concentration - - Weight 93 kg (205 lb) 02/25/2025 9:43 AM CDT Height 170.2 cm (5' 7) 02/25/2025 9:42 AM CDT Body Mass Index 32.11 02/25/2025 9:42 AM CDT Plan of Treatment Health Maintenance Due Date Last Done Comments Colorectal Cancer Screening Colonoscopy (10 Years) 1955 Hepatitis C 1973 Pneumococcal Vaccine: 50+ Years (1 of 1 - PCV) 2005 Zoster Vaccines (2 of 3) 09/07/2015 07/13/2015 Annual Medicare Wellness Visit 2020 COVID-19 Vaccine (3 - season) 2025 10/06/2020, 09/28/2020 Influenza Adult (#1) 2025 04/25/2019, 05/03/2017, 06/18/2015, Additional history exists DTaP, Tdap and Td Vaccines (3 - Td or Tdap) 07/31/2025 07/31/2015, 12/31/2012 Mammogram Screening 12/12/2026 12/12/2024, 11/10/2023, 10/19/2022, Additional history exists RSV Immunization or 60+ Years (1 - 1-dose 75+ series) 2030 Dexa Scan (General) Completed 05/07/2024, 05/07/2024, 05/16/2023, Additional history exists Hepatitis A Vaccines Aged Out No long er eligible based on patient's age to complete this topic Meningococcal B Vaccine Aged Out No l onger eligible based on patient's age to complete this topic Meningococcal Vaccine Aged Out No dank sheela eligible based on patient's age to complete this topic RSV Immunizations Under 20 Months Aged Out No longer eligible based on patient's age to complete this topic Procedures Procedure Name Priority Date/Time Associated Diagnosis Comments CT HEART SCREEN CALCIUM SCORE PROMO Routine 04/04/2025 10:31 AM CDT Screening for heart disease from Last 3 Months Results * CT HEART SCREEN CALCIUM SCORE PROMO (04/04/2025 10:31 AM CDT) Anatomical Region Laterality Modality Chest Computed Tomogra phy 04/04/2025 10:5 8 AM CDT Impressions 04/04/2025 10:58 AM CDT =====IMPRESSION:===== Total Score: 0 No plaque, very low risk, very unlikely for probability of significant CAD Ordered By: JOSE KAUR Interpreted By: Jc Omer MD, 04/04/2025 10:58 AM Narrative 04/04/2025 10:58 AM CDT [address] [address] EXAMINATION: Multislice Helical CT Coronary Calcium Scoring REASON FOR EXAM: Screening for heart disease COMPARISON: None TECHNIQUE: Multislice helical CT images of the proximal coronary arteries with a computer generated calcification score. A dose lowering technique was used for this procedure, which may include, but is not limited to, dose reduction technique, automated exposure control, iterative reconstruction, ALARA (As Low As Reasonably Achievable), or Image Gently techniques. Results: Left main: 0 LAD: 0 Circumflex: 0 Right coronary: 0 Total Score: 0 Comments: There is no mediastinal adenopathy, and there are no pulmonary nodules in the visualized portions of the chest. A moderate hiatal hernia is noted Calcium score guidelines: Total Score* Calcium Plaque Ovid *Risk *Probability of significant CAD 0 No Plaque Very Low Very unlikely 1-10 Minimal Plaque Low Unlikely 11-100 Mild Plaque Moderate Low likelihood of significant stenosis <50% 101-400 Moderate Plaque Moderately High Moderate likelihood of significant stenosis (>50%) Over 400 Extensive Plaque High High likelihood of significant stenosis (>50%) The amount of coronary artery calcification correlates with the severity of coronary atherosclerosis and the probability of future significant event. Calcification is not site specific for stenosis and does not identify non-calcified atherosclerotic plaque, but rather indicates the extent of atherosclerosis in the coronary arteries overall. The score may be used as an indicator for risk factor modification or additional cardiac testing. Significant change in calcium score over time may be indicative of subsequent disease development or useful as a benchmark to assess preventative programs. Procedure Note Jc Omer MD - 04/04/2025 [facility] [address] [place], [place] [address] EXAMINATION: Multislice Helical CT Coronary Calcium Scoring REASON FOR EXAM: Screening for heart disease COMPARISON: None TECHNIQUE: Multislice helical CT images of the proximal coronary arterieswith a computer generated calcification score. A dose lowering techniquewas used for this procedure, which may include, but is not limited to,dose reduction technique, automated exposure control, iterativereconstruction, ALARA (As Low As Reasonably Achievable), or Image Gentlytechniques. Results: Left main: 0 LAD: 0 Circumflex: 0 Right coronary: 0 Total Score: 0 Comments: There is no mediastinal adenopathy, and there are no pulmonarynodules in the visualized portions of the chest. A moderate hiatal herniais noted Calcium score guidelines: Total Score* Calcium Plaque Ovid *Risk *Probability ofsignificant CAD 0 No Plaque Very LowVery unlikely 1-10 Minimal Plaque LowUnlikely 11-100 Mild Plaque ModerateLow likelihood of significant stenosis <50% 101-400 Moderate Plaque Moderately HighModerate likelihood of significant stenosis (>50%) Over 400 Extensive Plaque HighHigh likelihood of significant stenosis (>50%) The amount of coronary artery calcification correlates with the severityof coronary atherosclerosis and the probability of future significantevent. Calcification is not site specific for stenosis and does notidentify non-calcified atherosclerotic plaque, but rather indicates theextent of atherosclerosis in the coronary arteries overall. The score may be used as an indicator for risk factor modification oradditional cardiac testing. Significant change in calcium score over timemay be indicative of subsequent disease development or useful as abenchmark to assess preventative programs. =====IMPRESSION:===== Total Score: 0 No plaque, very low risk, very unlikely for probability ofsignificant CAD Ordered By: JOSE KAUR Interpreted By: Jc Omer MD, 04/04/2025 10:58 AM us Jose Kaur MD CT Final Res ult from Last 3 Months Insurance MEDICARE [facility] Care Teams Rehab Trainer Relationship Specialty Start Date End Date Casey Rodrigues MD [address] [place] [address] [address]za [address] [address] PCP - General INTERNAL MEDICINE 10/13/21
--- OUTSIDE RECORDS SUMMARY | 2025-06-26 11:44 | XMS_ITS | Clinical Summary ---
Author Organization [facility] Care Team Providers Care Syrup Mixer Assistant Name Role Phone Unavailable Primary Care Provider Unavailabl e Social History Tobacco Use Types Packs/Day Years Used Date Smoking Tobacco: Never Assessed Comments Unknown Sex and Gender Information Value Date Recorded Sex Assigned at Not on file Legal Sex Female 11:31 AM MILITARY TECHNOLOGY MANAGER Gender Identity Not on file Sexual Orientation Not on file Plan of Treatment Health Maintenance Due Date Last Done Comments Hepatitis C Virus (HCV) Screening 1955 TdaP Immunization 1955 Cologuard 2000 Colonoscopy 2000 Colorectal Cancer Screening 2000 Immunochemical Fecal Occult Blood 2000 Pneumococcal Immunization (5 0+ years) (1 of 1 - PCV) 2005 Zoster Immunization (1 of 2) 2005 Influenza Immunization (#1) 2025 SARS-COV-2 Immunization (2 - season) 2025 10/06/2020 Respiratory Syncytial Virus (RSV) Immunization (Adult) (1 - 1-dose 75+ series) 2030 Hepatitis B Immunization Aged Out No longer eligible based on patient's age to complete this topic Human Papillomavirus (HPV) Immunization Aged Out No longer eligible b ased on patient's age to complete this topic Meningococcal Immunization (ACWY) Aged Out No longer eligible based on patient's age to complete this topic Rotavirus Immunization Aged Out No lo nger eligible based on patient's age to complete this topic
--- NOTE | 2025-06-26 11:50 | ED_ITS ---
HPI - General Adult General Chief complaint: Wound/Laceration Stated complaint: left hand laceration Time Seen by Provider: 06/26/25 11:17 History of Present Illness HPI narrative: This is a 70-year-old female presenting with a laceration the back of her left hand. She was pouring food out of a food safety scientist when the blade fell out of the process her striking her in the back of the left hand just proximal to the base of the 4th finger. She had significant bleeding. She came to the ER for evaluation. No other injuries. Unknown last tetanus. Related Data Home Medications ?Medication ?Instructions ?Recorded ?Confirmed ?Last Taken ?Type Vitamins 09/11/19 Unknown History carvedilol 3.125 mg tablet 09/11/19 Unknown History triamterene 37.5 tablet 09/11/19 Unknown His tory mg-hydrochlorothiazide 25 mg tablet Allergies Allergy/AdvReac Type Severity Reaction Status Date / Time No Known Allergies Allergy Unknown Unverified 03/11/19 19:18 [facility] Past Medical History Medical History (Updated 06/26/25 @ 11:55 by Herve Lee MD) Acid reflux disease with ulcer Carpal tunnel syndrome of left wrist Hypertension Surgical History Surgical History (Updated 09/11/19 @ 12:10 by ARIA Guillory) History of hysterectomy History of tonsillectomy History of adenoidectomy History of carpal tunnel surgery of left wrist joint repair of LT thumb History of Benjie fundoplication Family History Family History (Updated 09/11/19 @ 12:11 by ARIA Guillory) Mother Diabetes mellitus Hypertension Social History Social History (Updated 09/11/19 @ 12:11 by ARIA Guillory) Smoking status: Never smoker Second hand tobacco smoke exposure: No Alcohol intake: current Alcohol use details: Occasionally Substance use: never Living arrangements: with family Occupation/Education: retired Gender identity (if verbalized by the patient): Female Exam Narrative: APPEARANCE: No apparent distress. Head: atraumatic. EYES: EOMI, NOSE: Atraumatic NECK: Trachea midline RESPIRATORY: No increased rate of breathing clear to auscultation CARDIOVASCULAR: RRR, no peripheral edema ABDOMINAL: Non-distended MUSCULOSKELETAl: Focal exam of left hand revealed a 2 cm laceration to the dorsum hand just proximal to the base of the left 4th digit. Patient has impai red extension of the 4th digit. Flexion is intact. Cap refills less than 2 seconds. NEURO: Alert. Moving 4/4 extremities SKIN:: Warm, dry. Normal color PSYCHIATRIC: Normal affect Course Vital Signs Vital signs: Vital Signs Temperature 97.3 F L 06/26/25 11:02 Pulse Rate 83 06/26/25 11:02 Respiratory Rate 18 06/26/25 11:02 Blood Pressure 185/91 H 06/26/25 11:02 Pulse Oximetry 98 06/26/25 11:02 Oxygen Delivery Room Air 06/26/25 11:02 Temperature 97.3 F L 06/26/25 11:02 Pulse Rate 83 06/26/25 11:02 Respiratory Rate 18 06/26/25 11:02 Blood Pressure 185/91 H 06/26/25 11:02 Pulse Oximetry 98 06/26/25 11:02 Oxygen Delivery Room Air 06/26/25 11:02 Procedures Laceration Laceration 1: Date: 06/26/25 Site: hand Side (If applicable): left Size (cm): 2 Description: linear Depth: simple, single layer Local Anesthetic: lidocaine 1% Amount of anesthesia used (mL): 3 Pre-repair: wound explored, irrigated extensively and deep structures intact ====== Skin Level ====== Skin layer closed with: nylon Size (cm): 4-0 Number of sutures: 4 Technique: simple, interrupted ====== Subcutaneous Layer ====== ====== Muscle Layer ====== ====== Tendon Layer ====== Medical Decision Making [facility] Narrative Medical decision making narrative: -Course: 70-year-old female presenting with a laceration back of her hand after an incident with a food safety scientist. cap refill is <2 secs. She has limited extension of the 4th digit. Possible extensor tendon injury. The wound was closed. Hand was consulted at [facility]. I discussed case with Dr. Chance. He recommend we put her and a modified ulnar gutter splint with her ring finger and pinky and extension and immobilization of the wrist. This is been done. Patient has been placed on prophylactic antibiotics will follow-up hand [facility] early next week. Patient in agreement with the plan. -DDX includes but is not limited to: Extensor tendon injury, nerve injury, soft tissue injury Vital Signs Vital Signs: Vital Signs Temperature 97.3 F L 06/26/25 11:02 Pulse Rate 83 06/26/25 11:02 Respiratory Rate 18 06/26/25 11:02 Blood Pressure 185/91 H 06/26/25 11:02 Pulse Oximetry 98 06/26/25 11:02 Oxygen Delivery Room Air 06/26/25 11:02 Temperature 97.3 F L 06/26/25 11:02 Pulse Rate 83 06/26/25 11:02 Respiratory Rate 18 06/26/25 11:02 Blood Pressure 185/91 H 06/26/25 11:02 Pulse Oximetry 98 06/26/25 11:02 Oxygen Delivery Room Air 06/26/25 11:02 Discharge Plan Discharge Clinical Impression: Laceration, Injury of extensor tendon of hand Patient Disposition: Home Condition: Stable Instructions: Antibiotic Form, Care For Your Stitches (ED) Additional Instructions: You were seen in the ED for a laceration to her hand. Please follow-up with the hand surgeon next week at [facility]. Please return if you develop severe pain or signs of infection. Use Motrin and Tylenol for pain. Patient Language: Malaysian Prescriptions: New cephalexin 500 mg capsule 500 mg PO Q12H Qty: 14 0RF No Action triamterene-hydrochlorothiazid 37.5-25 mg tablet carvedilol 3.125 mg tablet Vitamins Follow-up/Referrals: UNKNOWN,DOCTOR [Primary Care Provider]
[2025-06-26] MEDS: TETANUS,DIPHTHERIA,AC PERTUSSIS ADULT (0.5 ML) BOOSTRIX IM (12:09)
[2025-06-26] MEDS: ACETAMINOPHEN 500 MG TABLET 1000 MG PO (12:10)
[2025-06-26] MEDS: LIDO 1%/EPINEPHRINE 1:100,000 20 ML VIAL (12:12)
== END 2025-06-26 13:07 | disposition home or self-care (01) ==
PROVIDERS: Emergency Provider Emergency Medicine
DX: S61.412A Laceration without foreign body of left hand, initial encounter (principal); S66.325A Laceration of extensor muscle, fascia and tendon of left ring finger at wrist and hand level, initial encounter; Z23 Encounter for immunization; I10 Essential (primary) hypertension; K21.9 Gastro-esophageal reflux disease without esophagitis; Z90.710 Acquired absence of both cervix and uterus; W26.8XXA Contact with other sharp object(s), not elsewhere classified, initial encounter
CPT/HCPCS: 12001; 73130; 90471; 90715; 99283; A9270; J2004